=== PATIENT | male | born 1980 | race Caucasian/White ===

== ENCOUNTER 2020-07-29 16:15 | Emergency (ER) | payer MEDICAID, OTHER ==
[~2020-07-29] VITALS: Ht 170.2 cm; Wt 68.0 kg
[~2020-07-29 16:15] MED LIST: BUPR150T12 PO; OXCA600T2 PO; QUET400T PO
--- NOTE | 2020-07-29 16:20 | NUR ---
PT TAKEN TO BED 10 TRIAGED AT BEDSIDE.
[2020-07-29 16:26] VITALS: BP 150/89
[2020-07-29] MEDS ORDERED: cefTRIAXone 1,000 MG in LIDOCAINE MPF 1% 2.1 ML IM ONE (16:50)
[2020-07-29] MEDS ORDERED: LORazepam 2 MG/ML VIAL IM ONE (16:50)
--- NOTE | 2020-07-29 17:04 | NUR ---
39 Y/O M BIB SELF, HOMELESS, PATIENT PRESENTS TO ED WITH RASH, PAIN IN HIS LIPS, MOUTH AND HANDS THAT STARTED 14 DAYS AGO. PT STATES HE WAS AT [facility] AND [facility] STATING THAT "I WAS TESTED FOR MY BLOOD AND THEY TOLD ME I HAD AN INFECTION IN MY BLOOD" STATES HE WAS GIVEN ANTIBIOTICS AND FINISHED THEM, LEFT AMA AT BOTH FACILITIES. DENIES N/V/D; SKIN IS FLUSHED/WARM/DRY; AAOX4 WITH EVEN AND STEADY GAIT; LUNGS CLEAR BL; HR EVEN AND REGULAR; PT DENIES ANY FEVER, CP, SOB, OR COUGH AT THIS TIME; PATIENT STATES PAIN OF 6/10 AT THIS TIME; VSS; PATIENT POSITIONED FOR COMFORT; HOB ELEVATED; BEDRAILS UP X2; BED DOWN. ER MD MADE AWARE OF PT STATUS. PMH: DRUG USE, HEP C, ARTHRITIS, MIGRAINES. NKA MED: NONE
--- NOTE | 2020-07-29 17:08 | NUR ---
Patient transferred to bed 8 for further care.
[2020-07-29] MEDS ORDERED: cefTRIAXone 1,000 MG VIAL ONE (17:14)
[2020-07-29] MEDS ORDERED: LIDOCAINE MPF 1% 5 ML ONE (17:14)
--- NOTE | 2020-07-29 17:45 | NUR ---
Patient states relief with Ativan IM, however, states 8/[address] Babb made aware.
--- NOTE | 2020-07-29 17:48 | NUR ---
Patient provided with ham sandwich, apple juice x 3, water cup, saltine / shane crackers x 2. All pt needs met at this time.
[2020-07-29] MEDS ORDERED: KETOROLAC 30 MG/ML VIAL ONE (17:59)
[2020-07-29] MEDS ORDERED: KETOROLAC 30 MG/ML VIAL IM ONE (18:00)
--- NOTE | 2020-07-29 18:09 | NUR ---
Patient completed all snacks provided. Patient states pain remains an 8/10 due to him eating. Respirations even/unlabored. nuclear monitoring technician remains in place. Bed locked in lowest position, side rails x 1, call light in reach.
[2020-07-29] MEDS ORDERED: SULF-59 PO (18:19)
[2020-07-29] MEDS ORDERED: CHLO118S1 BC (18:19)
[2020-07-29 18:35] VITALS: BP 136/92
--- NOTE | 2020-07-29 18:35 | NUR ---
Patient discharged with v/s stable. Written and verbal after care instructions given and explained. Patient alert, oriented and verbalized understanding of instructions. Ambulatory with steady gait. All questions addressed prior to discharge. ID band removed. Patient advised to follow up with PMD. Rx of Chlorhexidine, Sulfamethoxazle/Trimethoprim given. Patient educated on indication of medication including possible reaction and side effects. Opportunity to ask questions provided and answered.
== END 2020-07-29 18:35 | disposition home or self-care (01) ==
LOC: MED 16:15
DX: L03.114 Cellulitis of left upper limb (principal); F12.10 Cannabis abuse, uncomplicated; K08.89 Other specified disorders of teeth and supporting structures
CPT/HCPCS: 96372; 99284; J0696; J1885; J2001; J2060

== ENCOUNTER 2020-09-14 17:23 | Emergency (ER) | payer MEDICAID, OTHER ==
[~2020-09-14] VITALS: Ht 170.2 cm; Wt 63.5 kg
[~2020-09-14 17:23] MED LIST changes: +CHLO118S1 BC; +SULF-59 PO
[2020-09-14 17:34] VITALS: BP 107/62
--- NOTE | 2020-09-14 17:38 | NUR ---
PATIENT LEFT WITHOUT BEING SEEN BY DR. MCLEAN. NO FURTHER CARE PROVIDED FOR PATIENT.
== END 2020-09-14 17:38 | disposition home or self-care (01) ==
LOC: MED 17:23
DX: F10.129 Alcohol abuse with intoxication, unspecified (principal); Z53.21 Procedure and treatment not carried out due to patient leaving prior to being seen by health care provider

== ENCOUNTER 2022-04-22 13:09 | Emergency (ER) | payer OTHER ==
[~2022-04-22] VITALS: Ht 177.8 cm; Wt 59.0 kg
--- NOTE | 2022-04-22 13:09 | NUR ---
[facility] TAKEN TO BED 4
[2022-04-22] MEDS ORDERED: HALOPERIDOL IM 5 MG/ML VIAL ONE (13:12)
[2022-04-22] MEDS ORDERED: LORazepam 2 MG/ML VIAL ONE (13:12)
[2022-04-22] MEDS ORDERED: LORazepam 2 MG/ML VIAL IM ONE (13:15)
[2022-04-22] MEDS ORDERED: HALOPERIDOL IM 5 MG/ML VIAL IM ONE (13:15)
[2022-04-22 13:30] VITALS: BP 135/76
--- NOTE | 2022-04-22 13:37 | NUR ---
PATIENT BIBAM AND PD. PATIETN WAS FOUND IN THE FIELD WITHOUT CLOTHES AND AGITATED. PATIENT UNABLE TO FOLLOW INSTRUCTIONS OR PROPERLY ANSWER QUESTIONS FOR INITIAL ASSESSMENT. PATIENT PRESENTS WITH WORD SALAD, UNABLE TO FOCUS. PATIENT NEEDS CONSISTENT REIDRECTION ADN REORIENTATION. PATIENT IS AWAKE AND HYPERALERT. PATIENT PROVIDED MEDICATIONS FOR AGITATION AND ANXIETY FOR SAFETY. UNABLE TO ANSWER QUESTIONS REGARDING PMH. AT BEDSIDE ASSESSING PATIENT. PLAN OF CARE ONGOING
[2022-04-22 14:32] LABS: BASOPHILS % (AUTO) 0.4 % (0.0-2.0); EOSINOPHILS % (AUTO) 0.1 % (0.0-4.0); HEMATOCRIT 30.8 % (36-52); HEMOGLOBIN 10.1 g/dL (12.0-18.0); LYMPHOCYTES # (AUTO) 0.9 K/uL (2.0-11.5); MEAN CORPUSCULAR HEMOGLOBIN 29 pg (27-31); MEAN CORPUSCULAR HGB CONC 33 g/dL (33-37); MEAN CORPUSCULAR VOLUME 88.4 fL (80-94); MONOCYTES # (AUTO) 1.2 K/uL (0.8-1.0); MONOCYTES % (AUTO) 11.3 % (1.7-9.3); NEUTROPHILS # (AUTO) 8.6 K/uL (1.8-7.7); NEUTROPHILS % (AUTO) 80.2 % (42.2-75.2); PLATELET COUNT (AUTO) 292 K/uL (140-450); RED BLOOD CELL COUNT(AUTO) 3.49 MIL/uL (4.20-6.10); RED CELL DISTRIBUTION WIDTH 15.1 % (11.6-13.7); WHITE BLOOD COUNT (AUTO) 10.7 K/uL (4.8-10.8)
[2022-04-22 14:49] LABS: ACETAMINOPHEN < 0.5 ug/ml (10-30); ALBUMIN 2.8 g/dL (3.4-5.0); ANION GAP 15.8 (8-16); ASPARTATE AMINOTRANSFERASE 121 U/L (15-37); CARBON DIOXIDE 25.5 mmol/L (21-32); CHLORIDE 103 mmol/L (98-107); CREATININE 1.1 mg/dL (0.6-1.3); GFR ARICAN-AMERICAN 94 mL/min (>90); GLUCOSE 73 mg/dL (74-106); POTASSIUM 4.3 mmol/L (3.5-5.1); SODIUM SERUM 140 mmol/L (136-145); TOTAL BILIRUBIN 0.8 mg/dL (0.0-1.0); UREA NITROGEN, BLOOD 31 mg/dL (7-18)
[2022-04-22 14:50] LABS: SALICYLATE < 2.8 mg/dL (2.8-20.0)
[2022-04-22] MEDS ORDERED: NACL 0.9% 1,000 ML IV ONE (15:30)
--- NOTE | 2022-04-22 17:57 | NUR ---
PATIENT ABLE TO SIT UP. ANSWER YES OR NO QUESTIONS, PATIENT ABLE TO AMBULATE WITH ASSISTANCE OF PD. PATIENT IS CLEARED FOR DISCHARGE. PATIENT PROVIDED WITH SANDWICH AND TOLERATED WELL
--- NOTE | 2022-04-22 17:58 | NUR ---
PATIENT BIB [employer] DE[employer]. PATIENT EXAMINED BY DR. DE DIOS. PATIENT MEDICALLY CLEARED AND RELEASED IN CUSTODY IN STABLE CONDITION. ORIGINAL PRE-BOOK FORM GIVEN TO OFFICER NEERU.
[2022-04-22 17:59] VITALS: BP 129/86
== END 2022-04-22 17:58 ==
LOC: MED 13:09
DX: R41.82 Altered mental status, unspecified (principal)
CPT/HCPCS: 36415; 70450; 71045; 80053; 85025; 93005; 96360; 96372; 99285; G0480; G0482; J1630; J2060; Q0092